=== PATIENT | female | born 1955 | race Caucasian/White ===

== ENCOUNTER 2016-07-21 07:55 | Day surgery (SDC) | payer OTHER ==
[~2016-07-21] VITALS: Ht 160 cm; Wt 113.4 kg
[~2016-07-21 07:55] MED LIST: ALLEGRA ALLERG180 MG PO; CALCIUM 600 +1 EAC9 PO; CRESTOR20 MG PO; CULTURELLE IMM1 EACH PO; DAILY VITE1 EAC1 PO; LEVOXYL112 MCG PO; NAPROSYN500 MG PO; NEXIUM40 MG PO; SINGULAIR10 MG PO; ZOLOFT25 MG PO
== END 2016-07-21 09:54 | disposition home or self-care (01) ==
LOC: PAIN 07:55
PROC: 3E0S33Z Introduction of Anti-inflammatory into Epidural Space, Percutaneous Approach (ICD-10-PCS; principal; 2016-07-21)
DX: M54.16 Radiculopathy, lumbar region (principal); F41.9 Anxiety disorder, unspecified; E78.5 Hyperlipidemia, unspecified
CPT/HCPCS: J1100; J2250; J3010

== ENCOUNTER 2016-08-16 07:11 | Day surgery (SDC) | payer OTHER ==
[~2016-08-16] VITALS: Ht 160 cm; Wt 113.4 kg
== END 2016-08-16 08:30 | disposition home or self-care (01) ==
LOC: PAIN 07:11 → SDC 07:11 → PAIN 08:30
PROC: 3E0S33Z Introduction of Anti-inflammatory into Epidural Space, Percutaneous Approach (ICD-10-PCS; principal; 2016-08-16)
DX: M54.16 Radiculopathy, lumbar region (principal); F41.9 Anxiety disorder, unspecified; M47.816 Spondylosis without myelopathy or radiculopathy, lumbar region; M51.36 Other intervertebral disc degeneration, lumbar region; E66.01 Morbid (severe) obesity due to excess calories; Z68.41 Body mass index [BMI] 40.0-44.9, adult; Z87.891 Personal history of nicotine dependence; E03.9 Hypothyroidism, unspecified; K21.9 Gastro-esophageal reflux disease without esophagitis; E78.5 Hyperlipidemia, unspecified; J30.9 Allergic rhinitis, unspecified; G47.33 Obstructive sleep apnea (adult) (pediatric)
CPT/HCPCS: J1030; J1100; J3010

== ENCOUNTER 2017-08-01 07:05 | Day surgery (SDC) | payer OTHER ==
[~2017-08-01] VITALS: Ht 162.6 cm; Wt 113.4 kg
[~2017-08-01 07:05] MED LIST changes: -ALLEGRA ALLERG180 MG PO; +ZYRTEC10 M3 PO
== END 2017-08-01 08:45 | disposition home or self-care (01) ==
LOC: PAIN 07:05 → SDC 07:30 → PAIN 07:30
DX: M51.16 Intervertebral disc disorders with radiculopathy, lumbar region (principal); M47.816 Spondylosis without myelopathy or radiculopathy, lumbar region; F41.8 Other specified anxiety disorders; K21.9 Gastro-esophageal reflux disease without esophagitis; E03.9 Hypothyroidism, unspecified; G47.33 Obstructive sleep apnea (adult) (pediatric); E66.01 Morbid (severe) obesity due to excess calories; Z68.41 Body mass index [BMI] 40.0-44.9, adult; Z87.891 Personal history of nicotine dependence
CPT/HCPCS: J1100; J2250

== ENCOUNTER 2017-08-29 08:42 | Day surgery (SDC) | payer OTHER ==
[~2017-08-29] VITALS: Ht 162.6 cm; Wt 113.4 kg
== END 2017-08-29 10:01 | disposition home or self-care (01) ==
LOC: PAIN 08:42 → SDC 09:00 → PAIN 09:00
PROC: B01B1ZZ Fluoroscopy of Spinal Cord using Low Osmolar Contrast (ICD-10-PCS; principal; 2017-08-29)
PROC: 3E0S33Z Introduction of Anti-inflammatory into Epidural Space, Percutaneous Approach (ICD-10-PCS; principal; 2017-08-29)
DX: M54.16 Radiculopathy, lumbar region (principal); M51.36 Other intervertebral disc degeneration, lumbar region; Z87.891 Personal history of nicotine dependence; M47.816 Spondylosis without myelopathy or radiculopathy, lumbar region; F41.8 Other specified anxiety disorders; E78.5 Hyperlipidemia, unspecified; K21.9 Gastro-esophageal reflux disease without esophagitis; G47.33 Obstructive sleep apnea (adult) (pediatric); E66.01 Morbid (severe) obesity due to excess calories; Z68.41 Body mass index [BMI] 40.0-44.9, adult; R73.03 Prediabetes; Z85.42 Personal history of malignant neoplasm of other parts of uterus
CPT/HCPCS: J1100; J2250